=== PATIENT | male | born 1965 | race Caucasian/White ===

== ENCOUNTER 2020-06-09 08:57 | Day surgery (SDC) | payer MEDICAID ==
[~2020-06-09] VITALS: Ht 182.9 cm; Wt 181.4 kg
[~2020-06-09 08:57] MED LIST: ASPI-1522 PO; CHLO25TA3 PO; DULA0.75 SQ; INSU100I26 SQ; LOSA100T58 PO; METF-446 PO; SODIUM CHLORIDE 0.9% 1,000 ML IV ONE; SODIUM CHLORIDE 0.9% 1,000 ML ONE
[2020-06-09] MEDS ORDERED: PROPOFOL 1% 20 ML VIAL IVP ONE (08:58)
[2020-06-09] MEDS ORDERED: LIDOCAINE/PF 2% 5 ML VIAL IM ONE (08:58)
[2020-06-09 10:42] LABS: GLUCOMETER DEV NAME(LOC) SDS.; GLUCOSE,POINT OF CARE 162 MG/DL (70-110)
== END 2020-06-09 13:20 | disposition home or self-care (01) ==
LOC: SURGERY 08:57
PROVIDERS: ATTEND Internal Medicine Gastroenterology
DX: D12.3 Benign neoplasm of transverse colon (principal); E78.00 Pure hypercholesterolemia, unspecified; E11.9 Type 2 diabetes mellitus without complications; Z79.4 Long term (current) use of insulin; Z98.890 Other specified postprocedural states; Z11.59 Encounter for screening for other viral diseases
CPT/HCPCS: 45385; 82962; 87635; 88305; C1769; J2704; J3490; J7030